=== PATIENT | male | born 1945 | race Caucasian/White ===

== ENCOUNTER → 2022-09-07 | Outpatient (CLI) | payer MEDICARE, OTHER | END | disposition home or self-care (01) | LOC: LAB SHORT 10:11 → PLD 10:11 | DX: D48.5 Neoplasm of uncertain behavior of skin (principal) | CPT/HCPCS: 88305 ==

== ENCOUNTER 2022-09-28 09:14 | Day surgery (SDC) | payer MEDICARE, OTHER ==
[~2022-09-28] VITALS: Ht 170.2 cm; Wt 86.2 kg
== END 2022-09-28 12:51 | disposition home or self-care (01) ==
LOC: ORSCSDS 09:14
PROVIDERS: Internal Medicine Gastroenterology
PROC: 0DB98ZX Excision of Duodenum, Via Natural or Artificial Opening Endoscopic, Diagnostic (ICD-10-PCS; principal; 2022-09-28 10:45)
PROC: 0DBP8ZX Excision of Rectum, Via Natural or Artificial Opening Endoscopic, Diagnostic (ICD-10-PCS; principal; 2022-09-28 10:45)
PROC: 0DB68ZX Excision of Stomach, Via Natural or Artificial Opening Endoscopic, Diagnostic (ICD-10-PCS; principal; 2022-09-28 10:45)
PROC: 0DBH8ZX Excision of Cecum, Via Natural or Artificial Opening Endoscopic, Diagnostic (ICD-10-PCS; principal; 2022-09-28 10:45)
PROC: 0DBK8ZX Excision of Ascending Colon, Via Natural or Artificial Opening Endoscopic, Diagnostic (ICD-10-PCS; principal; 2022-09-28 10:45)
PROC: 0DBL8ZX Excision of Transverse Colon, Via Natural or Artificial Opening Endoscopic, Diagnostic (ICD-10-PCS; principal; 2022-09-28 10:45)
PROC: 0DBM8ZX Excision of Descending Colon, Via Natural or Artificial Opening Endoscopic, Diagnostic (ICD-10-PCS; principal; 2022-09-28 10:45)
DX: D50.9 Iron deficiency anemia, unspecified (principal); D12.3 Benign neoplasm of transverse colon; D12.0 Benign neoplasm of cecum; D12.2 Benign neoplasm of ascending colon; D12.4 Benign neoplasm of descending colon; K63.5 Polyp of colon; K64.4 Residual hemorrhoidal skin tags; K57.30 Diverticulosis of large intestine without perforation or abscess without bleeding; J44.9 Chronic obstructive pulmonary disease, unspecified; I50.40 Unspecified combined systolic (congestive) and diastolic (congestive) heart failure; Z99.81 Dependence on supplemental oxygen; K21.9 Gastro-esophageal reflux disease without esophagitis; F17.210 Nicotine dependence, cigarettes, uncomplicated; I25.10 Atherosclerotic heart disease of native coronary artery without angina pectoris; I48.0 Paroxysmal atrial fibrillation; E11.9 Type 2 diabetes mellitus without complications; Z95.0 Presence of cardiac pacemaker; Z79.899 Other long term (current) drug therapy
CPT/HCPCS: 82947; 88305; 88342; J2704; J7120

== ENCOUNTER 2024-02-07 09:57 | Inpatient (IN) | payer OTHER ==
[~2024-02-07] VITALS: Ht 170.2 cm; Wt 88.5 kg
[~2024-02-07 09:57] MED LIST: ATOR40TA PO; FUROSEMIDE40 MG PO; METOPROLOL SUCC25 MG PO; SYNTHROID137 MCG PO; TAMSULOSIN HCL0.4 M1 PO; TRAZ50 PO; TRELEGY ELLIPT1 EACH IH; ZOLOFT50 MG PO
[2024-02-07] MEDS ORDERED: NS 1,000 ML IV SCH ×3 (10:25→15:55)
[2024-02-07 10:31] LABS: BASOPHILS ABSOLUTE AUTO 0.03 K/mm3 (0.00-0.23); BASOPHILS PERCENT AUTO 0 % (0-2); EOSINOPHILS ABSOLUTE AUTO 0.22 K/mm3 (0.00-0.68); EOSINOPHILS PERCENT AUTO 3 % (0-6); Hematocrit 32.6 % (37.0-53.0); Hemoglobin 11.2 g/dL (13.5-17.5); IMMATURE GRAN ABSOLUTE AUTO 0.07 K/mm3 (0.00-0.10); IMMATURE GRAN PERCENT AUTO 1 % (0-1); LYMPHOCYTES ABSOLUTE AUTO 0.48 K/mm3 (0.84-5.20); LYMPHOCYTES PERCENT AUTO 6 % (21-46); MONOCYTES ABSOLUTE AUTO 0.76 K/mm3 (0.16-1.47); MONOCYTES PERCENT AUTO 10 % (4-13); Mean Corpuscular HGB 30.8 pg (26.0-34.0); Mean Corpuscular HGB Conc 34.4 g/dL (31.5-36.5); Mean Corpuscular Volume 90 fL (80-100); Mean Platelet Volume 8.9 fL (9.1-12.4); NEUTROPHILS ABSOLUTE AUTO 5.92 K/mm3 (1.96-9.15); NEUTROPHILS PERCENT AUTO 79 % (41-73); Platelet Count 248 K/mm3 (150-400); RDW Coefficient Variation 13.2 % (11.7-14.2); RDW Standard Deviation 43.4 fL (35.1-46.3); Red Blood Cell Count 3.64 M/mm3 (4.30-5.90); White Blood Cell Count 7.48 K/mm3 (4.00-11.30)
[2024-02-07 10:47] LABS: Albumin, Blood 2.6 g/dL (3.4-5.0); Albumin/Globulin Ratio 0.7 (0.8-1.8); Bilirubin, Total 0.8 mg/dL (0.1-1.0); Calcium, Blood 8.4 mg/dL (8.5-10.1); Creatinine, Blood 1.24 mg/dL (0.60-1.20); Globulin, Blood 3.8 g/dL (2.2-4.0); Potassium, Blood 4.1 mmol/L (3.5-5.5); Total Protein, Blood 6.4 g/dL (6.4-8.2)
[2024-02-07 11:14] LABS: Source, Urine Straight Cath
[2024-02-07 11:27] LABS: Bilirubin, Urine Neg (Neg); Blood, Urine 4+ (Neg); Glucose Qualitative, Urine Neg (Neg); Ketones, Urine Neg (Neg); Leukocyte Esterase, Urine 3+ (Neg); Nitrite, Urine Pos (Neg); Protein, Urine Neg (Neg); Specific Gravity, Urine 1.005 (1.003-1.022); Urobilinogen, Urine NORM (Normal)
[2024-02-07 11:31] LABS: Influenza A, PCR NEGATIVE (NEGATIVE); Influenza B, PCR NEGATIVE (NEGATIVE); Resp Syncytial Virus, PCR NEGATIVE (NEGATIVE); SARS-Cov-2 (COVID-19) PCR, MMC NEGATIVE (NEGATIVE)
[2024-02-07 11:36] LABS: Appearance, Urine Hazy (Clear); Color, Urine Pale Yellow (P-Yellow)
[2024-02-07 11:38] LABS: Bacteria Many /hpf; Red Blood Cells, Urine 0-2 /hpf (0-2); Squamous Epithelial Cells Not Seen /hpf (Few); White Blood Cells, Urine TNTC /hpf (0-5)
[2024-02-07] MEDS ORDERED: ELIQUIS5 M3 PO (11:49)
[2024-02-07] MEDS ORDERED: CefTRIAXone Sodium 1,000 MG in NS 50 ML IV ONE (12:15)
--- NOTE | 2024-02-07 15:17 | NUR ---
Upon a patient request, Spiritual care visited the patient. 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 He has neglected his personal care and knew he would end up in the hospital. I met his son and visited briefly with his spouse Chrissy who is being cared for by patient's son until he return to his [place] ([place]). I normalized his feelings and fears and provide therapeutic listening and a calming presence.
[2024-02-07 15:20] LABS: Campylobacter Sp Not Detected (NOT DETECT); Plesiomonas Shigelloides Not Detected (NOT DETECT); Salmonella Sp Not Detected (NOT DETECT); Yersinia Enterocolitica Not Detected (NOT DETECT)
[2024-02-07 15:21] LABS: Adenovirus F 40/41 Not Detected (NOT DETECT); Astrovirus Not Detected (NOT DETECT); Cryptosporidium Not Detected (NOT DETECT); Cyclospora Cayetanensis Not Detected (NOT DETECT); E. Coli O157 Not Detected (NOT DETECT); Entamoeba Histolytica Not Detected (NOT DETECT); Enteroaggregative E. coli-EAEC Not Detected (NOT DETECT); Enteropathogenic E. coli-EPEC Not Detected (NOT DETECT); Enterotoxigenic E. coli-ETEC Not Detected (NOT DETECT); Giardia Lamblia Not Detected (NOT DETECT); Norovirus GI/GII Not Detected (NOT DETECT); Rotavirus A Not Detected (NOT DETECT); Sapovirus Not Detected (NOT DETECT); Shiga Toxin-prod E. coli-STEC Not Detected (NOT DETECT); Shigella/Enteroin E. coli-EIEC Not Detected (NOT DETECT); Vibrio Cholerae Not Detected (NOT DETECT); Vibrio Sp Not Detected (NOT DETECT)
[2024-02-07] MEDS ORDERED: Ondansetron HCl 2 MG / ML 2ML Vial IV PRN (15:55)
[2024-02-07] MEDS ORDERED: Acetaminophen 325 MG TABLET PO PRN (15:55)
[2024-02-07] MEDS ORDERED: Magnesium Sulf 2 GM/Water 50ML 50 ML IV SCH (16:30)
[2024-02-07] MEDS ORDERED: Ipratropium Bromide INH 0.02% 0.5 mg/2.5ML Vial INH SCH (17:55)
[2024-02-07] MEDS ORDERED: Mometasone/Formoterol MDI 100/5 mcg 13 GM INH SCH (17:55)
[2024-02-07] MEDS ORDERED: LEVSOD100 PO (18:35)
[2024-02-07 19:28] LABS: Bun/Creatinine Ratio 20.2 (12.0-20.0); Creatinine, Blood 1.24 mg/dL (0.60-1.20); Potassium, Blood 3.8 mmol/L (3.5-5.5)
[2024-02-07 20:31] VITALS: BP 136/62
[2024-02-07] MEDS ORDERED: Lactobacil 2-S.Thermo-Bifido 1 1 Cap PO SCH (21:00)
[2024-02-07] MEDS ORDERED: Apixaban 5 MG Tab PO SCH (21:00)
[2024-02-07] MEDS ORDERED: TraZODone HCl 50 MG Tab PO SCH (21:00)
[2024-02-07] MEDS ORDERED: Ipratropium/Albuterol SulF 2.5-0.5MG/3 ML Amp INH SCH (21:05)
[2024-02-07] MEDS ORDERED: Albuterol 2.5 MG/3 ML VIAL INH PRN (21:05)
[2024-02-07] MEDS ORDERED: Lactated Ringer's 1,000 ML IV SCH (21:25)
[2024-02-08 02:46] VITALS: BP 127/55
[2024-02-08 04:12] LABS: BASOPHILS ABSOLUTE AUTO 0.03 K/mm3 (0.00-0.23); BASOPHILS PERCENT AUTO 1 % (0-2); EOSINOPHILS ABSOLUTE AUTO 0.22 K/mm3 (0.00-0.68); EOSINOPHILS PERCENT AUTO 3 % (0-6); Hematocrit 32.2 % (37.0-53.0); Hemoglobin 10.7 g/dL (13.5-17.5); IMMATURE GRAN ABSOLUTE AUTO 0.04 K/mm3 (0.00-0.10); IMMATURE GRAN PERCENT AUTO 1 % (0-1); LYMPHOCYTES ABSOLUTE AUTO 0.39 K/mm3 (0.84-5.20); LYMPHOCYTES PERCENT AUTO 6 % (21-46); MONOCYTES ABSOLUTE AUTO 0.72 K/mm3 (0.16-1.47); MONOCYTES PERCENT AUTO 11 % (4-13); Mean Corpuscular HGB 30.2 pg (26.0-34.0); Mean Corpuscular HGB Conc 33.2 g/dL (31.5-36.5); Mean Corpuscular Volume 91 fL (80-100); Mean Platelet Volume 9.1 fL (9.1-12.4); NEUTROPHILS ABSOLUTE AUTO 5.03 K/mm3 (1.96-9.15); NEUTROPHILS PERCENT AUTO 78 % (41-73); Platelet Count 244 K/mm3 (150-400); RDW Coefficient Variation 13.6 % (11.7-14.2); Red Blood Cell Count 3.54 M/mm3 (4.30-5.90); White Blood Cell Count 6.43 K/mm3 (4.00-11.30)
[2024-02-08 04:37] LABS: Bun/Creatinine Ratio 21.8 (12.0-20.0); Calcium, Blood 7.9 mg/dL (8.5-10.1); Creatinine, Blood 1.1 mg/dL (0.60-1.20); Magnesium, Blood 2.2 mg/dL (1.6-2.4); Potassium, Blood 3.5 mmol/L (3.5-5.5)
--- NOTE | 2024-02-08 05:18 | NUR ---
SHIFT SUMMARY PATIENT ALERT AND ORIENTED X4 T/O SHIFT, ABLE TO APPROPRIATELY EXPRESS NEEDS, CALL LIGHT WITHIN REACH. RESTLESS OVERNIGHT, GOING BACK AND FORTH FROM BED TO RECLINER. AMBULATES WELL WITH FWW. COMPLAINS OF PAIN TO RIBS AND HIPS, UNCHANGED FROM PREVIOUS SHIFT. TREATED WITH OXYCODONE 10MG Q4 PRN PER ORDERS, SEE MAR FOR DETAILS. BP STABLE TONIGHT. HR 70'S-100'S ON CARDIZEM DRIP. TITRATED OFF OF CARDIZEM THIS AM AROUND 0300. TACHYCARDIA NOTED WITH AMBULATION. DENIES SHORTNESS OF BREATH, BREATHING UNLABORED ON 4L VIA NC. OVERALL PATIENT HAD AN UNEVENTFUL NIGHT WITHOUT ACUTE EVENT.
--- NOTE | 2024-02-08 05:59 | NUR ---
SHIFT SUMMARY PATIENT ADMITTED THIS EVENING FOR UTI. PATIENT ALERT AND ORIENTED x4 THROUGHOUT THE NIGHT, ABLE TO APPROPRIATELY EXPRESS NEEDS, CALL LIGHT WITHIN REACH. PATIENT WEAK, AMBULATES WITH 1P ASSIST, DYSPNEA ON EXERTION NOTED THOUGH PATIENT DENIES SHORTNESS OF BREATH. HE GETS VISIBLY TACHYPNEIC AND BREATHING BECOMES MORE LABORED WITH ACTIVITY. CURRENTLY ON 3L O2 VIA NC. ON TELE, HR 60'S, VPACED. BP STABLE. PATIENT HAS A BOX OF STRAIGHT CATHS HE BROUGHT FROM HOME WHICH HE USES TO SELF CATH. GOOD UOP OVERNIGHT. NO ACUTE ISSUE THIS EVENING. PATIENT SIMPLY DOES NOT WANT HIS SLEEP INTERRUPTED.
[2024-02-08] MEDS ORDERED: Levothyroxine Sodium 0.137 MG Tab PO SCH (06:00)
[2024-02-08] MEDS ORDERED: Insulin Human Lispro 100 Units/ML 3ML Syringe SC SCH (07:30)
[2024-02-08 08:35] VITALS: BP 134/59
[2024-02-08] MEDS ORDERED: Sertraline HCl 50 MG Tab PO SCH (09:00)
[2024-02-08] MEDS ORDERED: Metoprolol Succinate 25 MG TABCR PO SCH (09:00)
[2024-02-08] MEDS ORDERED: Tamsulosin HCl 0.4 MG Cap PO SCH (09:00)
[2024-02-08] MEDS ORDERED: Atorvastatin 40 MG Tab PO SCH (09:00)
[2024-02-08] MEDS ORDERED: Furosemide 40 MG Tab PO SCH (09:00)
--- NOTE | 2024-02-08 11:17 | NUR ---
REPORT GIVEN TO RENETTA FLORES RN AT 1040.
[2024-02-08] MEDS ORDERED: NS 250 ML IV PRN (11:55)
[2024-02-08] MEDS ORDERED: CefTRIAXone Sodium 1,000 MG in NS 100 ML IV SCH (12:00)
--- NOTE | 2024-02-08 15:17 | NUR ---
THIS RN PROVIDING BREAK COVERAGE FOR PRIMARY RN. DR SALAZAR TO BEDSIDE: PLAN TO CONTINUE WITH CURRENT PLAN OF TREATMENT FOR TONIGHT WITH PLAN TO DC HOME TOMORROW WITH HOME HEALTH. WILL NOTIFY PRIMARY RN.
--- NOTE | 2024-02-08 16:36 | NUR ---
SHIFT SUMMARY MR LEONE WAS TRANSFERED FROM PCU TO MEDICAL UNIT AT 1145HRS. AND SON ARRIVED SHORTLY AFTERWARDS. PT ORIENTATED, CALM, COOPERATIVE AND ABLE TO DISCUSS HIS CARE WITH ME. HE SAID THAT HE STRAIGHT CATHS 4-5X DAILY, THAT HE DID IT SHORTLY BEFORE HE TRANSFERED TO MEDICAL UNIT, THAT HE FEELS THE URGE TO URINATE. HE SAID HE HAS HIS OWN SELF-CATH SUPPLIES THAT HE MUCH PREFERS OVER [facility] SUPPLIES. ON TELEMETRY VENTRICULAR PACE 70 PER SARAH TAKER OUT. DENIES PAIN. PT SAID THAT HE IS PLEASED TO HAVE A PLAN TO GO HOME TOMORROW. BED LOW, CALL LIGHT IN REACH.
--- NOTE | 2024-02-08 17:01 | NUR ---
THIS RN PROVIDING BREAK COVERAGE FOR PRIMARY RN.
[2024-02-08 17:02] VITALS: BP 139/79
[2024-02-08 19:41] VITALS: BP 142/54
[2024-02-09 04:03] VITALS: BP 123/49
--- NOTE | 2024-02-09 06:01 | NUR ---
END OF SHIFT SUMMARY PT A&OX4. VPACED 50-70 ON TELE. PT DENIES COMPLAINTS. DENIED NEED TO STRAIGHT CATH BEFORE BED. NO ACUTE EVENTS OVERNIGHT.
[2024-02-09 06:39] LABS: Hematocrit 31.8 % (37.0-53.0); Hemoglobin 10.4 g/dL (13.5-17.5); Mean Corpuscular HGB 30.2 pg (26.0-34.0); Mean Corpuscular HGB Conc 32.7 g/dL (31.5-36.5); Mean Corpuscular Volume 92 fL (80-100); Platelet Count 227 K/mm3 (150-400); RDW Standard Deviation 47.5 fL (35.1-46.3); Red Blood Cell Count 3.44 M/mm3 (4.30-5.90)
[2024-02-09 07:01] VITALS: BP 133/54
[2024-02-09 07:01] LABS: Bun/Creatinine Ratio 18.3 (12.0-20.0); Calcium, Blood 8.1 mg/dL (8.5-10.1); Creatinine, Blood 1.2 mg/dL (0.60-1.20); Potassium, Blood 3.9 mmol/L (3.5-5.5)
[2024-02-09] MEDS ORDERED: CIPR500 PO (12:57)
[2024-02-09] MEDS ORDERED: FURO40 PO (13:00)
[2024-02-09] MEDS ORDERED: LACT PO (13:01)
--- NOTE | 2024-02-09 14:11 | NUR ---
DISCHARGE NOTE MR LEONE HAS DENIED PAIN TODAY. UP TO CHAIR, EATING AND DRINKING WELL. 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 TELE AND PIV DC'D. PT VERBALISED UNDERSTANDING OF WRITTEN AND VERBAL DISCHARGE INSTRUCTIONS. NO NEW CONCERNS VOICED PRIOR TO DISCHARGE. DISCHARGED HOME WITH FAMILY ON OXYGEN. W/C ESCORT FROM MEDICAL UNIT.
== END 2024-02-09 14:11 | disposition home health service (06) | DRG 690 ==
LOC: ER 09:57 → PCU 09:58 → ERHOLD 09:58 → PCU 20:20 → MEDS 02-08 11:37
PROVIDERS: Emergency Medicine; Family Medicine Adult Medicine; ADMIT Internal Medicine
DX: N39.0 Urinary tract infection, site not specified (principal); J96.11 Chronic respiratory failure with hypoxia; E87.1 Hypo-osmolality and hyponatremia; E87.20 Acidosis, unspecified; I48.91 Unspecified atrial fibrillation; J44.9 Chronic obstructive pulmonary disease, unspecified; Z66 Do not resuscitate; E11.9 Type 2 diabetes mellitus without complications; I50.9 Heart failure, unspecified; E03.9 Hypothyroidism, unspecified; G47.33 Obstructive sleep apnea (adult) (pediatric); W18.30XA Fall on same level, unspecified, initial encounter; E86.9 Volume depletion, unspecified; I25.10 Atherosclerotic heart disease of native coronary artery without angina pectoris; R42 Dizziness and giddiness; R55 Syncope and collapse; B96.1 Klebsiella pneumoniae [K. pneumoniae] as the cause of diseases classified elsewhere; I95.9 Hypotension, unspecified; F40.240 Claustrophobia; N40.1 Benign prostatic hyperplasia with lower urinary tract symptoms; R33.8 Other retention of urine; N28.9 Disorder of kidney and ureter, unspecified; Z95.1 Presence of aortocoronary bypass graft; Z79.01 Long term (current) use of anticoagulants; Z95.0 Presence of cardiac pacemaker; Z90.89 Acquired absence of other organs; Z87.891 Personal history of nicotine dependence; Z98.890 Other specified postprocedural states; Z79.899 Other long term (current) drug therapy; Z79.890 Hormone replacement therapy
CPT/HCPCS: 0241U; 36415; 51701; 70450; 71046; 80048; 80053; 81001; 82570; 82947; 83605; 83735; 83880; 83930; 83935; 84295; 84300; 84443; 84484; 84540; 85025; 85027; 87077; 87086; 87186; 87507; 93005; 93010; 93306; 94640; 94664; 94760; 96361; 96365; 96366; 96367; 96376; 97110; 97116; 97162; 99285-25; A9270; G0378; J0696; J3475; J7030; J7050; J7120

== ENCOUNTER → 2025-06-02 | Outpatient (CLI) | payer SELFPAY ==
[~2025-06-02] MED LIST changes: +CIPR500 PO; +ELIQUIS5 M3 PO; +FURO40 PO; +LACT PO; +LEVSOD100 PO
== END ==
LOC: LAB 12:50 → LAB SHORT 12:50
DX: R82.90 Unspecified abnormal findings in urine (principal)
CPT/HCPCS: 87077; 87086; 87186